=== PATIENT | female | born 1995 | race Caucasian/White ===

== ENCOUNTER 2016-09-16 18:23 | Emergency (ER) | payer MEDICAID ==
[~2016-09-16] VITALS: Ht 170.2 cm; Wt 108.9 kg
[~2016-09-16 18:23] MED LIST: AC325T PO; EPIN0.1D10 INJ; FEXO30TA17; FLT05NA16; FLT05NA16 NSEACH; HYDR-3583 PO; MNTL10T; MNTL10T PO; MONT5TAB11; ONDN4T PO; PEDI1TAB35 PO; PRD20T PO; SULF1TAB35 PO; SULF1TAB38 PO; TRM50T PO
--- OUTSIDE RECORDS SUMMARY | 2016-09-16 18:29 | XMS REPORT ---
Author HOLLY Bosch [facility] eClinicalWorks Address Unknown Phone Unavailable Care Team Providers [facility] Assistant Director Name Role Phone HOLLY DOWNS CP Unavailable Allergies, Adverse Reactions, Alerts Substance Reaction Event Type N.K.D.A. Info Not Available Non Drug Allergy Problems Problem Type Condition Code Onset Dates Condition Status Problem Unspecified high-risk V23.9 Active Problem Gestational diabetes mellitus, antepartum 648.83 Active Problem Vaginal discharge N89.8 Active Assessment Vaginal discharge N89.8 Active Medications No Known Medications Procedures Procedure Coding System Code Date No Charge CPT-4 38372 Apr 16, 2015 CULTURE, BACTERIA, OTHER CPT-4 26481 Apr 16, 2015 TRICHOMONAS VAGIN, DIR PROBE CPT-4 22121 Apr 16, 2015 Office Visit, Est Pt., Level 3 CPT-4 62721 Apr 16, 2015 Vital Signs Date/Time: Apr 16, 2015 Temperature 98.9 F Weight 248.0 lbs Height 66 in BMI 40.02 Index Blood Pressure Diastolic 78 mmHg Blood Pressure Systolic 120 mmHg Cardiac Monitoring Heart Rate 84 bpm BMIPercentile 98.45 % Wt Percentile 99.35 % Results Name Result Date Reference Range Unit Abnormality Flag TRICHOMONAS (IN HOUSE) Summary Purpose eClinicalWorks Submission
[2016-09-16] MEDS ORDERED: METF500T4 PO (18:41)
[2016-09-16] MEDS ORDERED: KETOROLAC 60 MG/2 ML VIAL IM STA (18:54)
[2016-09-16] MEDS ORDERED: MELO15TA14 PO (18:58)
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
[2016-09-16 19:27] VITALS: BP 0/0
== END 2016-09-16 19:27 | disposition home or self-care (01) ==
LOC: EDUNIT# 18:23 → ER 18:25
DX: M25.561 Pain in right knee (principal); E11.9 Type 2 diabetes mellitus without complications; Z79.84 Long term (current) use of oral hypoglycemic drugs
CPT/HCPCS: 96372; 99283

== ENCOUNTER 2016-10-22 09:44 | Outpatient (RCR) | payer MEDICAID, OTHER ==
[~2016-10-22 09:44] MED LIST changes: +MELO15TA14 PO; +METF500T4 PO
== END 2016-12-09 09:12 | disposition home or self-care (01) ==
PROVIDERS: ATTEND Nurse Practitioner
DX: M51.26 Other intervertebral disc displacement, lumbar region (principal)